=== PATIENT | female | born 1965 | race Caucasian/White ===

== ENCOUNTER 2017-03-06 17:46 | Emergency (ER) | payer BC ==
[~2017-03-06] VITALS: Ht 157.5 cm; Wt 52.9 kg
[~2017-03-06 17:46] MED LIST: AMBIEN10 MG PO; TAMOXIFEN CITRA20 MG PO
[2017-03-06 18:35] LABS: HEMATOCRIT 44.5 % (36.0-46.0); MCH 29.9 PG (29.0-34.0); MCV 90.4 FL (83-99); MEAN PLAT.VOLUME 10.4 uM^3 (9.5-12.4); PLATELET COUNT 400 K/uL (156-360); RBC DIS.WIDTH-CV 12.7 % (11.8-14.6); RBC DIS.WIDTH-SD 42.2 % (39-53); RED BLOOD COUNT 4.92 M/uL (3.80-5.20); WHITE BLOOD COUNT 13.5 K/uL (4.1-10.2)
[2017-03-06 18:45] LABS: CHLORIDE 103 mEq/L (99-109); POTASSIUM 4.2 mEq/L (3.7-5.4); SODIUM 139 mEq/L (136-147)
[2017-03-06 18:47] LABS: GLUCOSE 101 mg/dL (70-99)
[2017-03-06 18:48] LABS: ANION GAP 9 MEQ/L (2-14)
[2017-03-06 18:49] LABS: TOTAL BILIRUBIN 0.8 mg/dL (0.0-1.0)
[2017-03-06 18:50] LABS: ALKALINE PHOSPHATASE 70 IU/L (3-129)
[2017-03-06 18:51] LABS: GFR ESTIMATE (CALCULATED) > 59 mL/min/
[2017-03-06 18:52] LABS: UREA NITROGEN (BUN) 7 mg/dL (9-23)
[2017-03-06 19:02] LABS: QUANTITATIVE HCG 5.5 MIU/ML
[2017-03-06 19:18] LABS: ADD MIUA? NO; BILIRUBIN NEGATIVE; BLOOD NEGATIVE; COLOR YELLOW ((YELLOW)); GLUCOSE (STRIP) NEGATIVE; KETONES NEGATIVE; LEUKOCYTES NEGATIVE; NITRITE NEGATIVE; PROTEIN (STRIP) NEGATIVE; UCUL ADDED? NO; UROBILINOGEN 0.2 MG/DL (0.2-1.0)
[2017-03-06 19:51] LABS: LIPASE 19 U/L (1.0-51.0)
[2017-03-06] MEDS ORDERED: NORCO 7.5/321 TABLET PO (21:07)
[2017-03-06] MEDS ORDERED: CIPRO500 MG PO (21:07)
[2017-03-06] MEDS ORDERED: FLAGYL500 MG PO (21:07)
[2017-03-06] MEDS ORDERED: MOTRIN600 MG PO (21:07)
[2017-03-06 21:22] VITALS: BP 102/53
== END 2017-03-06 21:25 | disposition home or self-care (01) ==
LOC: EME 17:46
DX: K57.32 Diverticulitis of large intestine without perforation or abscess without bleeding (principal); Z85.3 Personal history of malignant neoplasm of breast; Z90.10 Acquired absence of unspecified breast and nipple; Z87.442 Personal history of urinary calculi; Z88.8 Allergy status to other drugs, medicaments and biological substances
CPT/HCPCS: 74176; 80053; 81003; 83690; 84702; 85027; 99281; 99285; J1885; J3010